=== PATIENT | female | born 1995 | race Caucasian/White ===

== ENCOUNTER → 2024-02-03 07:05 | Outpatient (REF) | payer BC, SELFPAY | LOC: PNTC 07:05 | PROVIDERS: ATTENDING PHYSICIAN Obstetrics & Gynecology | DX: O60.23X1 Term delivery with preterm labor, third trimester, fetus 1 (principal); O09.899 Supervision of other high risk pregnancies, unspecified trimester | CPT/HCPCS: 76801; 76813 ==

== ENCOUNTER → 2024-03-01 06:50 | Outpatient (REF) | payer BC, SELFPAY | LOC: PNTC 06:50 | PROVIDERS: ATTENDING PHYSICIAN Obstetrics & Gynecology | DX: O09.899 Supervision of other high risk pregnancies, unspecified trimester (principal) | CPT/HCPCS: 76805; 76817 ==

== ENCOUNTER → 2024-03-28 06:54 | Outpatient (REF) | payer BC, SELFPAY | LOC: PNTC 06:54 | PROVIDERS: ATTENDING PHYSICIAN Obstetrics & Gynecology | DX: E28.2 Polycystic ovarian syndrome (principal); O09.219 Supervision of pregnancy with history of pre-term labor, unspecified trimester | CPT/HCPCS: 76811; 76817 ==

== ENCOUNTER → 2024-04-12 09:52 | Outpatient (REF) | payer BC, SELFPAY | LOC: PNTC 09:52 | PROVIDERS: ATTENDING PHYSICIAN Obstetrics & Gynecology | DX: O44.40 Low lying placenta NOS or without hemorrhage, unspecified trimester (principal) | CPT/HCPCS: 76815; 76817 ==

== ENCOUNTER → 2024-04-28 06:57 | Outpatient (REF) | payer BC, SELFPAY | LOC: PNTC 06:57 | PROVIDERS: ATTENDING PHYSICIAN Obstetrics & Gynecology | DX: Z36.86 Encounter for antenatal screening for cervical length (principal) | CPT/HCPCS: 76816; 76817 ==

== ENCOUNTER → 2024-05-23 07:56 | Outpatient (REF) | payer BC, SELFPAY | LOC: PNTC 07:56 | PROVIDERS: ATTENDING PHYSICIAN Obstetrics & Gynecology | DX: O09.219 Supervision of pregnancy with history of pre-term labor, unspecified trimester (principal) | CPT/HCPCS: 76816 ==

== ENCOUNTER → 2024-06-20 07:54 | Outpatient (REF) | payer BC, SELFPAY | LOC: PNTC 07:54 | PROVIDERS: ATTENDING PHYSICIAN Obstetrics & Gynecology | DX: O09.219 Supervision of pregnancy with history of pre-term labor, unspecified trimester (principal) | CPT/HCPCS: 76816 ==

== ENCOUNTER → 2024-07-18 08:02 | Outpatient (REF) | payer BC, SELFPAY | LOC: PNTC 08:02 | PROVIDERS: ATTENDING PHYSICIAN Obstetrics & Gynecology | DX: Z87.51 Personal history of pre-term labor (principal) | CPT/HCPCS: 76816 ==

== ENCOUNTER 2024-08-11 05:20 | Inpatient (IN) | payer BC, SELFPAY ==
[2024-08-11 06:04] VITALS: BP 131/81; BMI 29.8
[2024-08-11 06:15] LABS: % Basophils 0.6 % (0-2); % Eosinophils 0.4 % (0-6); % Immature Granulocytes 0.4 % (0-0.5); % Lymphocytes 23.9 % (20.5-51.1); % Monocytes 5.5 % (1.7-9.3); % Neutrophils 69.2 % (42.2-75.2); Absolute Basophils 0.1 10^3/uL (0-0.2); Absolute Lymphocytes 2.3 10^3/uL (1.2-3.4); Absolute Monocytes 0.5 10^3/uL (0.1-0.6); Absolute Neutrophils 6.6 10^3/uL (1.4-6.5); Hematocrit 33.3 % (37.0-47.0); Hemoglobin 11.6 g/dL (12.0-16.0); Mean Corp Hgb Conc. 34.8 g/dL (33.0-37.0); Mean Corpuscular Hgb 29.9 pg (27.0-31.0); Mean Corpuscular Volume 85.8 fL (81.0-99.0); Mean Platelet Volume 9.6 fL (7.4-10.4); Nucleated Red Blood Cells % 0 %; Platelet Count 198 10^3/uL (130-400); Red Blood Cell Count 3.88 10^6/uL (4.20-5.40); Red Cell Dist. Width 12.6 % (11.5-14.5); White Blood Cell Count 9.6 10^3/uL (4.8-10.8)
[2024-08-11] MEDS: FENTANYL/BUPIVACAINE 100 EPIDURAL (06:26)
[2024-08-11] MEDS: SUBLIMAZE 100 MCG EPIDURAL (06:26)
[2024-08-11] MEDS: PITOCIN 30 UNITS/NSS 500 ML IV (08:00)
[2024-08-11] MEDS: SENOKOT-S 1 TABLET PO (10:22)
[2024-08-11] MEDS: MOTRIN 600 MG PO (19:50)
[2024-08-12 05:01] LABS: Hematocrit 31.6 % (37.0-47.0); Hemoglobin 10.9 g/dL (12.0-16.0)
[2024-08-12] MEDS: MOTRIN 600 MG PO ×3 (05:02→23:31)
[2024-08-12] MEDS: PRENATAL PLUS 1 TABLET PO (07:49)
[2024-08-12] MEDS: SENOKOT-S 1 TABLET PO (07:49)
[2024-08-13] MEDS: PRENATAL PLUS PO (09:05)
[2024-08-13] MEDS: SENOKOT-S 1 TABLET PO (09:05)
[2024-08-15 13:23] LABS: Syphilis/T. pallidum Ab Reflex Negative (Negative)
== END 2024-08-13 12:58 | disposition home or self-care (01) | DRG 807 ==
LOC: LDRP 05:20
PROVIDERS: Obstetrics & Gynecology; ADMITTING PHYSICIAN Obstetrics & Gynecology; FAMILY PHYSICIAN Family Medicine
PROC: 4A1HXCZ Monitoring of Products of Conception, Cardiac Rate, External Approach (ICD-10-PCS; 2024-08-11)
PROC: 10E0XZZ Delivery of Products of Conception, External Approach (ICD-10-PCS; 2024-08-13)
DX: O99.12 Other diseases of the blood and blood-forming organs and certain disorders involving the immune mechanism complicating childbirth (principal); Z37.0 Single live birth; D89.89 Other specified disorders involving the immune mechanism, not elsewhere classified; O99.62 Diseases of the digestive system complicating childbirth; O69.81X0 Labor and delivery complicated by cord around neck, without compression, not applicable or unspecified; K58.9 Irritable bowel syndrome, unspecified; K21.9 Gastro-esophageal reflux disease without esophagitis; Z3A.39 39 weeks gestation of pregnancy; Z88.1 Allergy status to other antibiotic agents
CPT/HCPCS: 36415; 85014; 85018; 85025; 86780; 86850; 86900; 86901